=== PATIENT | male | born 1960 | race Caucasian/White ===

== ENCOUNTER 2016-10-22 08:45 | Day surgery (SDC) | payer OTHER ==
[~2016-10-22] VITALS: Ht 170.2 cm; Wt 83.9 kg
[~2016-10-22 08:45] MED LIST: LOPE2CAP PO
[2016-10-22 09:35] VITALS: Ht 170.2 cm; Wt 83.9 kg
[2016-10-22] MEDS ORDERED: NAPR275T83 PO (09:39)
[2016-10-22 09:51] VITALS: BP 129/87; PULSE 73; RESP 12
[2016-10-22] MEDS ORDERED: FENTAnyl 50 MCG/ML VIAL ONE (10:26)
[2016-10-22] MEDS ORDERED: MIDAZOLAM 1 MG/ML 2 ML INJ ONE ×2 (10:26)
[2016-10-22 10:39] VITALS: BP 117/82; RESP 18
--- NOTE | 2016-10-23 07:58 | GILP ---
DATE OF PROCEDURE: PROCEDURE: Colonoscopy up to cecum. PREOPERATIVE DIAGNOSIS: Screening colonoscopy to rule out colon polyps. POSTOPERATIVE DIAGNOSIS: Moderate degree of external hemorrhoids with no bleeding, no thrombosis. DESCRIPTION OF PROCEDURE: After the informed written consent was obtained, the patient was asked to lie on the left lateral side. A total 3 mg Versed and 50 mcg of fentanyl was given as intravenous anesthesia. When the patient became somnolent, the Olympus video colonoscope was introduced into the rectum and scope was advanced all the way to the cecum. Entire colon appeared perfectly normal. No polyps, no mucosal abnormality detected. Endoscope at this time was withdrawn and on the way out, no addition al abnormality is detected. On retroflexion, no internal hemorrhoids were noted. When the scope wa s withdrawn, moderate degree of external hemorrhoids were noted and the procedure was terminated. PLAN: Recommend repeat colonoscopy in 10 years. Dictated By: JOANA CHIN/HUEY Conf#: [id number] DID#: [id number] CC: IVORY YANG MD;*EndCC*
== END 2016-10-22 10:46 | disposition home or self-care (01) ==
LOC: GIL 08:45
PROVIDERS: ATTEND Internal Medicine Gastroenterology
DX: Z12.11 Encounter for screening for malignant neoplasm of colon (principal); K64.4 Residual hemorrhoidal skin tags
CPT/HCPCS: 45378; J2250; J3010; Z7610